=== PATIENT | male | born 2000 | race Caucasian/White ===

== ENCOUNTER 2022-01-15 09:17 | Outpatient (CLI) | payer MEDICAID | END 2022-01-15 09:18 | disposition short-term general hospital (02) | LOC: EMS 09:17 | DX: S02.0XXB Fracture of vault of skull, initial encounter for open fracture (principal); S06.899A Other specified intracranial injury with loss of consciousness of unspecified duration, initial encounter; V03.10XA Pedestrian on foot injured in collision with car, pick-up truck or van in traffic accident, initial encounter; Y92.413 State road as the place of occurrence of the external cause | CPT/HCPCS: A0425; A0433; A0999 ==